=== PATIENT | female | born 1955 | race Caucasian/White ===

== ENCOUNTER → 2016-07-08 | Day surgery (SDC) | payer BC ==
[~2016-07-08] MED LIST: ACETAMINOPHEN 1000 MG/100 ML VIAL IV ONE; ACETAMINOPHEN/HYDROcodone 325 MG/5 MG TAB ONE; BUPIVACAINE/EPINEPHRINE 0.5% 50 ML VIAL ONE; BUPR-197 PO; HYDR-3533 PO; ISOSULFAN BLUE 50 MG/5 ML VIAL SQ ONE; LACTATED RINGER'S 1000 ML INJ 1,000 ML ONE; LIDOCAINE 1%/EPINEPHrine 1:100,000 SOLN 20 ML VIAL ONE; MEPERIDINE HCL 25 MG/ML VIAL ONE; MIDAZOLAM HCL 2 MG/2 ML VIAL ONE; NAPR-576 PO; ONDANSETRON HCL 4 MG/2 ML VIAL IV PUSH ONE; PROPOFOL 200 MG/20 ML AMP IV ONE; SYNT25TA PO; VANCOMYCIN HCL 1000 MG VIAL ONE; ceFAZolin INJ 1,000 MG VIAL ONE
--- NOTE | 2016-07-17 08:08 | MP ---
cc: DON HENAO M.D., RONALD J. M.D. DATE OF SURGERY: 07/08/2016 PROCEDURE 1. Needle-localized wide local excision, right breast and left breast. 2. Excision sentinel lymph nodes, right axilla x2. PREOPERATIVE DIAGNOSIS 1. Invasive ductal carcinoma, right breast. 2. Atypical ductal hyperplasia, left breast. ANESTHESIA LMA. SURGEON Bravo ESTIMATED BLOOD LOSS 50 mL. FLUIDS 1150 mL crystalloid. COMPLICATIONS None. DRAINS None. SPECIMEN Right axillary sentinel nodes x2, right breast needle-localized tissue, and left breast needle-localized tissue to pathology. PROCEDURE IN DETAIL The patient underwent a needle-localized procedure in the Department of Radiology in both breasts. He then underwent injection with technetium-99 sulfur colloid in the right breast. She was then re-imaged and the right axilla marked by the radiologist. She returned to the operating room where she was placed on the operating table in the supine position. After an adequate level of laryngeal mask anesthesia was achieved, the breasts were prepped and draped bilaterally. A timeout was taken confirming the correct patient, site and procedures to be performed. Attention was turned to the left side first and at this point a curvilinear incision was made midway between the needle insertion site and the nipple-areolar complex. Dissection was carried down to the needle which was cut at the skin and brought into the wound. A very generous sphere of tissue was removed around the needle and sent for specimen mammogram. While awaiting radiographic confirmation, the wound was made hemostatic with electrocautery. The wound was then closed with interrupted 3-0 Vicryl suture and 5-0 PDS in a running subcuticular fashion. The breast was dressed with Steri-Strips. Attention was then turned to the right breast and at this point an incision was made in the axilla where the lymph nodes were noted to be by the radiologist. Dissection was carried down into the axilla were two lymph nodes were found to have activity above background. These were excised and passed off the table. With hemostasis assured, the axilla was closed in two layers with interrupted 3-0 Vicryl suture and 5-0 PDS in a running subcuticular fashion. The wound was toweled off and attention turned to the left breast. A curvilinear incision was made in the left breast midway between the needle insertion site and the nipple-areolar complex. Dissection was carried out laterally to the needle which was cut at the skin and brought into the wound. A sphere of tissue was removed including the needle and this was sent for specimen radiograph. This confirmed the micro clip to be present within the specimen. While awaiting radiologic confirmation, the wound was made hemostatic with electrocautery. The wound was closed in two layers with interrupted 3-0 Vicryl suture and 5-0 PDS in a running subcuticular fashion. Both the axillary wound and the breast wounds were dressed with Steri-Strips. The patient was extubated and taken back to the recovery room in stable condition. She tolerated the procedure well. MD REMEDIOS Borges/DANIELA /6:00 PM /7:50 AM RONALD
== END | disposition home or self-care (01) ==
LOC: ESDC 07:04
PROVIDERS: ATTEND Surgery Trauma Surgery
DX: C50.911 Malignant neoplasm of unspecified site of right female breast (principal); N60.92 Unspecified benign mammary dysplasia of left breast
CPT/HCPCS: 00400; 01610; 19125; 38525; 88307; 88313; 88341; 88342; 88361; 88377; J0131; J0690; J2175; J2250; J2405; J3010; J3370; J7120; Q9968

== ENCOUNTER → 2016-07-29 | Day surgery (SDC) | payer BC ==
[~2016-07-29] MED LIST changes: -ACETAMINOPHEN/HYDROcodone 325 MG/5 MG TAB ONE; +BUPIVACAINE/EPINEPHRINE 0.25% PF 10 ML VIAL ONE; -BUPIVACAINE/EPINEPHRINE 0.5% 50 ML VIAL ONE; -ISOSULFAN BLUE 50 MG/5 ML VIAL SQ ONE; +KETOROLAC TROMETHAMINE 30 MG/ML (IVP) VIAL IV PUSH ONE; -MEPERIDINE HCL 25 MG/ML VIAL ONE; +SODIUM CHLOR 0.9% 250 ML BAG IV ONE
--- NOTE | 2016-07-29 13:13 | MP ---
cc: DON HENAO M.D., GEORGE MD KROCHAK, RONALD J. M.D. LATIF, ZAFAR MD DATE OF SURGERY 07/29/2016 PROCEDURE Excision left axillary sentinel lymph node. PREOPERATIVE DIAGNOSIS DCIS left breast with history of invasive carcinoma of the right breast. POSTOPERATIVE DIAGNOSIS DCIS left breast with history of invasive carcinoma of the right breast. ANESTHESIA LMA. ESTIMATED BLOOD LOSS Less than 5 ml. FLUIDS 800 mL crystalloid. COMPLICATIONS None. DRAINS None. SPECIMEN Left axillary sentinel node x 1 to pathology. PROCEDURE IN DETAIL The patient was taken to the Department of Nuclear Medicine where she underwent injection of the left breast with technetium 99 sulfur colloid. She was imaged and found to have a sentinel node in the left axilla. This was marked by the radiologist. The patient was taken to the operating room and placed on the operating table in the supine position. After an adequate level of laryngeal mask anesthesia was instituted, the left axilla was prepped and draped. Time-out was taken confirming the correct patient site and procedure to be performed. The skin and subcutaneous tissue was infiltrated with local anesthetic and an incision made in the skin fold in the axilla. Dissection was carried down to the lymph node which was excised with electrocautery. The axilla was reexamined with the probe which had been used to identify the node and direct dissection. No further activity above background was noted. There were no clinically suspicious nodes by palpation. With the wound hemostatic, the skin was reapproximated with interrupted 3-0 Vicryl suture and 5-0 PDS in a running subcuticular fashion. The wound was dressed with Steri-Strips. The patient was extubated and taken back to the recovery room in stable condition. She tolerated the procedure well. Sponge, needle and instrument counts were reported to be correct. MD REMEDIOS Borges/LUZMA /12:48 PM /1:00 PM RONALD
== END | disposition home or self-care (01) ==
LOC: ESDC 06:53
PROVIDERS: ATTEND Surgery Trauma Surgery
DX: D05.12 Intraductal carcinoma in situ of left breast (principal); Z85.3 Personal history of malignant neoplasm of breast
CPT/HCPCS: 01610; 38525; 88307; J0131; J0690; J1885; J2250; J2405; J3010; J3370; J7050; J7120

== ENCOUNTER 2017-09-12 13:13 | Inpatient (IN) ==
--- NOTE | 2017-09-12 13:56 | XR ---
EXAM DATE: 09/12/2017 1:54 PM EDT AGE/SEX: 62 years / Female INDICATIONS: Chest pain CLINICAL DATA: This is the patient's initial encounter. Patient reports that signs and symptoms have been present for 1 month and indicates a pain score of 0/10. MEDICAL/SURGICAL HISTORY: Carcinoma, breast. . COMPARISON: No prior exams available for comparison. FINDINGS: A single AP view of the chest demonstrates the lungs to be symmetrically aerated without evidence of mass, infiltrate or effusion. The cardiomediastinal contours are unremarkable. Osseous structures a re intact. CONCLUSION: No acute cardiopulmonary disease Electronically signed by: Roldan Jordan MD 09/12/2017 1:55 PM EDT
--- NOTE | 2017-09-12 13:58 | ED ---
HPI General Chief Complaint: Arrhythmia/Palpitations Stated Complaint: Shortness of breath Time Seen by Provider: 09/12/17 13:29 Source: patient Mode of arrival: ambulatory Limitations: no limitations History of Present Illness MD complaint: rapid heart beat and "heart racing" Onset (ago): week(s) (6) Duration: intermittent Severity: moderate Context: occurred during rest and occurred during exertion Related Data Home Medications Medication Instructions Recorded Confirmed anastrozole 1 mg PO DAILY 09/12/17 09/12/17 calcium carbonate-vitamin D3 09/12/17 [Caltrate 600 + D] levothyroxine 125 mcg PO DAILY 09/12/17 09/12/17 Allergies Allergy/AdvReac Type Severity Reaction Status Date / Time No Known Allergies Allergy Uncoded 03/23/15 10:37 [facility] Medical History Medical History Breast cancer (Acute) High cholesterol (Acute) Hyperthyroidism (Acute) Surgical History Surgical History Status post radiation therapy (Acute) Social History Social History Substance History: No History of Abuse Second Hand Smoke Exposure: Yes Smoking Status: Heavy tobacco smoker Tobacco Type: Cigarettes How Often Do You Have a Drink Containing Alcohol: 2 to 4 times a month Course Initial Documented Vital Signs Temperature 97.9 F 09/12/17 13:22 Pulse Rate 110 H 09/12/17 13:22 Respiratory Rate 20 09/12/17 13:22 Blood Pressure 133/89 09/12/17 13:22 Pulse Oximetry 95 09/12/17 13:22 Last Documented Vital Signs Temperature 95 F L 09/12/17 13:58 Pulse Rate 92 H 09/12/17 17:10 Respiratory Rate 18 09/12/17 17:10 Blood Pressure 132/86 09/12/17 17:10 Pulse Oximetry 96 09/12/17 17:10 Medical Decision Making [facility] Narrative Medical decision making narrative: Patient is a 62-year-old female that presented to the emergency department for evaluation of shortness of breath and palpitations. Labs and imaging ordered and pending. IV access established patient was placed on hall monitor. Labs reviewed, BNP is elevated to 69. TSH and free T4 are consistent with hyperthyroidism. Patient is on levothyroxine. Dose likely needs to be adjusted down. Initial chest x-ray showed no acute disease. Patient had a CT pulmonary angiogram performed to rule out pulmonary embolism but showed moderate emphysema. Patient was given DuoNeb as well as budesonide inhaler. Walking O2 sat was obtained and patient O2 saturation dropped to 88-89 percent and she became symptomatic. Discussed findings with Dr. Tai who accepted admission. Patient will be admitted for COPD exacerbation. Differential Diagnosis Differential Diagnosis: Pulmonary embolism versus cardiac arrhythmia versus metabolic abnormality versus pneumonia versus COPD exacerbation versus other Lab Data Lab results reviewed: Yes I reviewed the patient's lab results. Result diagrams: 09/12/17 13:50 09/12/17 13:50 Lab Results 09/12/17 09/12/17 09/12/17 Range/Units 13:50 13:50 13:50 WBC 8.3 (4.0-11.0) th/mm3 RBC 5.71 H (4.00-5.30) mil/mm3 Hgb 16.7 H (11.6-15.3) gm/dL Hct 49.9 H (35.0-46.0) % MCV 87.3 (80.0-100.0) fL MCH 29.3 (27.0-34.0) pg MCHC 33.5 (32.0-36.0) % RDW 14.6 (11.6-17.2) % Plt Count 295 (150-450) th/mm3 MPV 9.0 (7.0-11.0) fL Neut % (Auto) 68.6 (16.0-70.0) % Lymph % (Auto) 22.2 (9.0-44.0) % Kidder % (Auto) 7.6 (0.0-8.0) % Eos % (Auto) 1.0 (0.0-4.0) % Baso % (Auto) 0.6 (0.0-2.0) % Neut # (Auto) 5.7 (1.8-7.7) th/mm3 Lymph # (Auto) 1.8 (1.0-4.8) th/mm3 Kidder # (Auto) 0.6 (0.0-0.9) th/mm3 Eos # (Auto) 0.1 (0.0-0.4) th/mm3 Baso # (Auto) 0.0 (0.0-0.2) th/mm3 WBC Differential . Differential Comment Auto diff final PT 10.2 (9.8-11.6) sec INR 1.0 Ratio APTT 24.0 L (24.3-30.1) sec Sodium 143 (136-145) meq/L Potassium 3.9 (3.5-5.1) meq/L Chloride 109 H (98-107) meq/L Carbon Dioxide 25.3 (21.0-32.0) meq/L Anion Gap 9 (5-15) meq/L BUN 23 H (7-18) mg/dL Creatinine 1.13 H (0.50-1.00) mg/dL Estimated GFR 49 L (>89) mL/min Random Glucose 97 (74-106) mg/dL Calcium 10.1 (8.5-10.1) mg/dL Magnesium 1.9 (1.5-2.5) mg/dL Total Bilirubin 0.3 (0.2-1.0) mg/dL AST 25 (15-37) U/L ALT 41 (10-53) U/L Alkaline Phosphatase 83 (45-117) U/L Total Creatine Kinase 258 H (26-192) U/L CK-MB (CK-2) 7.6 H (0.5-3.6) ng/mL CK-MB (CK-2) % 2.9 (0.0-4.0) % Troponin I 0.05 (0.02-0.05) ng/mL B-Natriuretic Peptide (0-100) pg/mL Total Protein 7.7 (6.4-8.2) g/dL Albumin 4.3 (3.4-5.0) g/dL TSH 0.048 L (0.358-3.740) uIU/mL Free T4 1.60 H (0.76-1.46) ng/dL 09/12/17 Range/Units 13:50 WBC (4.0-11.0) th/mm3 RBC (4.00-5.30) mil/mm3 Hgb (11.6-15.3) gm/dL Hct (35.0-46.0) % MCV (80.0-100.0) fL MCH (27.0-34.0) pg MCHC (32.0-36.0) % RDW (11.6-17.2) % Plt Count (150-450) th/mm3 MPV (7.0-11.0) fL Neut % (Auto) (16.0-70.0) % Lymph % (Auto) (9.0-44.0) % Kidder % (Auto) (0.0-8.0) % Eos % (Auto) (0.0-4.0) % Baso % (Auto) (0.0-2.0) % Neut # (Auto) (1.8-7.7) th/mm3 Lymph # (Auto) (1.0-4.8) th/mm3 Kidder # (Auto) (0.0-0.9) th/mm3 Eos # (Auto) (0.0-0.4) th/mm3 Baso # (Auto) (0.0-0.2) th/mm3 WBC Differential Differential Comment PT (9.8-11.6) sec INR Ratio APTT (24.3-30.1) sec Sodium (136-145) meq/L Potassium (3.5-5.1) meq/L Chloride (98-107) meq/L Carbon Dioxide (21.0-32.0) meq/L Anion Gap (5-15) meq/L BUN (7-18) mg/dL Creatinine (0.50-1.00) mg/dL Estimated GFR (>89) mL/min Random Glucose (74-106) mg/dL Calcium (8.5-10.1) mg/dL Magnesium (1.5-2.5) mg/dL Total Bilirubin (0.2-1.0) mg/dL AST (15-37) U/L ALT (10-53) U/L Alkaline Phosphatase (45-117) U/L Total Creatine Kinase (26-192) U/L CK-MB (CK-2) (0.5-3.6) ng/mL CK-MB (CK-2) % (0.0-4.0) % Troponin I (0.02-0.05) ng/mL B-Natriuretic Peptide 269 H (0-100) pg/mL Total Protein (6.4-8.2) g/dL Albumin (3.4-5.0) g/dL TSH (0.358-3.740) uIU/mL Free T4 (0.76-1.46) ng/dL Imaging Data Radiologist's impression: ITS Impressions Chest CTA 09/12/17 13:40 CONCLUSION: 1. Negative for pulmonary embolus. Moderate emphysema. Chest X-Ray 09/12/17 13:40 CONCLUSION: No acute cardiopulmonary disease Radiology reviewed. Discharge Plan Physicians Team ED Provider: Jacob Vazquez ED Midlevel Provider: Kylie Isaacs Primary Care Provider: Jet Orlando Rxs /Orders / Referrals /Forms Prescriptions: No Action anastrozole 1 mg Tablet 1 mg PO DAILY RF: 0 levothyroxine 125 mcg Capsule 125 mcg PO DAILY RF: 0 calcium carbonate-vitamin D3 [Caltrate 600 + D] 600 mg (1,500 mg)-800 unit Tablet,Chewable RF: 0 Discharge Interventions Interventions: Vital Signs Last Done: 09/12/17 13:24 Status ED Status: Admitted Patient
[2017-09-12 14:16] LABS: Baso % (Auto) 0.6 % (0.0-2.0); Eos # (Auto) 0.1 th/mm3 (0.0-0.4); Hematocrit 49.9 % (35.0-46.0); Hemoglobin 16.7 gm/dL (11.6-15.3); Lymph # (Auto) 1.8 th/mm3 (1.0-4.8); Lymph % (Auto) 22.2 % (9.0-44.0); Mean Corpuscular HGB Conc 33.5 % (32.0-36.0); Mean Corpuscular Hemoglobin 29.3 pg (27.0-34.0); Mean Corpuscular Volume 87.3 fL (80.0-100.0); Mono # (Auto) 0.6 th/mm3 (0.0-0.9); Mono % (Auto) 7.6 % (0.0-8.0); Neut # (Auto) 5.7 th/mm3 (1.8-7.7); Neut % (Auto) 68.6 % (16.0-70.0); Platelet Count 295 th/mm3 (150-450); Red Blood Count 5.71 mil/mm3 (4.00-5.30); Red Cell Distribution Width 14.6 % (11.6-17.2); White Blood Count 8.3 th/mm3 (4.0-11.0)
[2017-09-12 14:27] LABS: Prothrombin Time 10.2 sec (9.8-11.6)
[2017-09-12 14:49] LABS: Alkaline Phosphatase 83 U/L (45-117); Creatine Kinase 258 U/L (26-192); Thyroid Stimulating Hormone 0.048 uIU/mL (0.358-3.740); Total Protein 7.7 g/dL (6.4-8.2); Troponin I 0.05 ng/mL (0.02-0.05)
[2017-09-12 15:02] LABS: Alanine Aminotransferase 41 U/L (10-53); Albumin 4.3 g/dL (3.4-5.0); Anion Gap 9 meq/L (5-15); Aspartate Aminotransferase 25 U/L (15-37); Blood Urea Nitrogen 23 mg/dL (7-18); CKMB Percent 2.9 % (0.0-4.0); Calcium 10.1 mg/dL (8.5-10.1); Carbon Dioxide 25.3 meq/L (21.0-32.0); Chloride 109 meq/L (98-107); Creatine Kinase MB 7.6 ng/mL (0.5-3.6); Glomerular Filtration Rate 49 mL/min (>89); Glucose,Random 97 mg/dL (74-106); Magnesium 1.9 mg/dL (1.5-2.5); Potassium 3.9 meq/L (3.5-5.1); Sodium 143 meq/L (136-145)
--- NOTE | 2017-09-12 16:31 | CT ---
EXAM DATE: 09/12/2017 4:16 PM EDT AGE/SEX: 62 years / Female INDICATIONS: Heart palpitations and increased shortness of breath daily after increased physical act ivity 6 weeks ago CLINICAL DATA: This is the patient's initial encounter. Patient reports that signs and symptoms have been present for 1 month and indicates a pain score of 0/10. MEDICAL/SURGICAL HISTORY: Carcinoma, breast. . Bilateral breast lumpectomies and lumpectomies per p atient RADIATION DOSE: 9.37 CTDI (mGy) COMPARISON: No prior exams available for comparison. TECHNIQUE: Volumetric scanning was performed using a multi-row detector CT scanner during bolus infu tristian of 74ML ml Omnipaque 350 (iohexol) nonionic water-soluble contrast as a single exam dose. The d manuel was post processed with a variety of visualization algorithms including full volume maximum inten sity projection and sliding thin slab reformation. Using automated exposure control and adjustment o f the mA and/or kV according to patient size, radiation dose was kept as low as reasonably achievable to obtain optimal diagnostic quality images. DICOM format image data is available electronically fo r review and comparison. FINDINGS: No filling defects to suggest pulmonary embolic disease. Moderate emphysema. No pleural or pericardia l effusion. No lung consolidation. No hilar, mediastinal or axillary adenopathy. Moderate coronary ca lcifications. No acute findings in the upper abdomen. CONCLUSION: 1. Negative for pulmonary embolus. Moderate emphysema. Electronically signed by: Lenny Sr MD 09/12/2017 4:29 PM EDT
[2017-09-12] MEDS ORDERED: MethylPREDNISolone Sod Succinate Inj 40 MG/ML Vial IV.PUSH ONE (17:33)
[2017-09-12] MEDS: Enoxaparin Inj 40 MG/0.4 ML Syringe SQ SCH (17:42)
[2017-09-12] MEDS: Azithromycin Inj 500 MG in Sodium Chlor 0.9% Inj 250 ML IV.SIG SCH (17:51)
--- NOTE | 2017-09-12 19:32 | P.HPIM ---
History of Present Illness Primary Care Physician: Jet Orlando MD History of Present Illness: Mrs. Mancini is a 62-year-old female. She has a past medical history of breast cancer with radiation therapy. She also has a long history of smoking. No previous diagnosis of COPD but she comes into the emergency department with shortness of breath and hypoxia. Etiology is likely a COPD exacerbation. No overt evidence of bronchitis. The symptoms have been a gradual worsening over about 1 week. Her only other medical condition at baseline is hypothyroidism. Today TSH is suppressed and T4 is elevated. The patient has tachycardia and some of this may be contributory by the iatrogenic type per thyroidism. Most of it is likely related to her hypoxia as when she has oxygen on her heart rate slows when she is taking oxygen off she has a increase in her heart rate. No other complaints at this time. She is more comfortable with oxygen. No cough, no fever, no chest pain. Inpatient Certification: I certify that the inpatient services were ordered in accordance with Medicare regulations governing the order. This includes certification that hospital inpatient services are reasonable and necessary and in the case of services not specified as inpatient-only under 42 CFR 419.22(n), that they are appropriately provided as inpatient services in accordance to with the 2-midnight benchmark under 43 CFR 412.3(e) Estimated Total Length of Stay (Days): 3 Plans for Post Hospital Care: Home Review of Systems Constitutional: Reports fatigue, Reports weakness, Denies anorexia, Denies chills, Denies night sweats Eyes: Denies blind spots, Denies blurry vision, Denies bulging eyes Ears, Nose, Mouth, and Throat: Denies abnormal hearing, Denies ear pain, Denies nasal discharge Cardiovascular: Denies chest pain, Denies chest pain at rest, Denies chest pain with activity Respiratory: Reports shortness of breath, Reports shortness of breath with activity, Denies cough, Denies wheezing Gastrointestinal: Denies abdominal pain, Denies bright, red blood in stools, Denies change in stools Musculoskeletal: Denies abnormal walking, Denies back pain, Denies body aches Skin/Breast: Denies dry skin, Denies hair loss, Denies itching, Denies lesions Neurologic: Denies abnormal hearing, Denies abnormal movements, Denies abnormal speech PMFSH - History History Provided By: Patient - Medical History Medical History: Medical History (Last Updated 09/12/17 @ 19:25 by Lai Tai MD) Breast cancer High cholesterol Hyperthyroidism Hypothyroidism - Surgical History Surgical History: Surgical History (Last Updated 09/12/17 @ 19:26 by Lai Tai MD) History of knee replacement Hx of plastic surgery S/P surgical manipulation of ankle joint Status post radiation therapy - Family History Family History: Family History (Last Updated 09/12/17 @ 19:27 by Lai Tai MD) Mother COPD (chronic obstructive pulmonary disease) Breast cancer Mother No problems noted. Other Diabetes - Tobacco History Second Hand Smoke Exposure: Yes Tobacco Use In Past 30 Days: Yes Smoking Status: Heavy tobacco smoker Tobacco Type: Cigarettes - Alcohol History How Often Do You Have a Drink Containing Alcohol: 2 to 4 times a month - Substance Use History Substance History: No History of Abuse - Immunization History Tetanus Immunization: <5 Years Hx Influenza Vaccine This Season: Yes Medications and Allergies Active Medications: Active Medications Al Hydroxide/Mg Hydroxide (Milk Of Magnlola Liq) 30 ml PO Q12H PRN PRN Reason: Mild Constipation Albuterol (Albuterol Neb (Prn)) 2.5 mg NEB Q2HR NEB PRN PRN Reason: SHORTNESS OF BREATH Albuterol (Duoneb Neb (Shant)) 1 ampul NEB Q6HR NEB SHANT Anastrozole (Arimidex) 1 mg PO DAILY [facility] Enoxaparin Sodium (Lovenox Inj) 40 mg SQ Q24H [facility] Last Admin: 09/12/17 17:42 Dose: Not Given Azithromycin 500 mg/ Sodium (Chloride) 250 mls @ 250 mls/hr IV.SIG Q24H [facility] [place] Last Admin: 09/12/17 17:51 Dose: 250 mls/hr Levothyroxine Sodium (Synthroid) 100 mcg PO DAILY@0600 [facility] Prednisone (Deltasone) 40 mg PO DAILY SHANT Sodium Chloride (Ns Flush) 2 ml IV.FLUSH UNSCH PRN PRN Reason: FLUSH AFTER USING IV ACCESS Sodium Chloride (Ns Flush) 2 ml IV.FLUSH BID SHANT Sodium Chloride (Ns Flush) 2 ml IV.FLUSH PRN PRN PRN Reason: FLUSH AFTER USING IV ACCESS Allergies Allergy/AdvReac Type Severity Reaction Status Date / Time No Known Allergies Allergy Uncoded 03/23/15 10:37 Home Medications Medication Instructions Recorded Confirmed Type anastrozole 1 mg PO DAILY 09/12/17 09/12/17 History calcium carbonate-vitamin D3 600 mg PO DAILY 09/12/17 09/12/17 History [Caltrate 600 + D] levothyroxine 125 mcg PO DAILY 09/12/17 09/12/17 History Exam Vital signs: Vital Signs 09/12/17 13:22 09/12/17 13:24 09/12/17 13:58 Temperature 97.9 F 95 F L Pulse Rate 110 H 95 H 96 H Respiratory Rate 20 18 18 Blood Pressure 133/89 150/87 H 150/87 H Pulse Oximetry 95 95 95 09/12/17 16:53 09/12/17 17:10 09/12/17 17:39 Temperature Pulse Rate 102 H 92 H 97 H Respiratory Rate 18 18 Blood Pressure 132/86 151/94 H Pulse Oximetry 89 L 96 95 09/12/17 17:51 Temperature Pulse Rate 95 H Respiratory Rate 16 Blood Pressure Pulse Oximetry 96 Intake & Output 09/12/17 09/12/17 09/13/17 06:59 18:59 06:59 Weight 72.121 kg Narrative: GENERAL: NAD, A&Ox3 HEAD: Normocephalic. NECK: Supple, trachea midline. No lymphadenopathy. EYES: No scleral icterus. No injection or drainage. CARDIOVASCULAR: Regular rate and rhythm without murmurs, gallops, or rubs. RESPIRATORY: Breath sounds equal bilaterally. No accessory muscle use. Bilateral wheezing GASTROINTESTINAL: Abdomen soft, non-tender, nondistended. MUSCULOSKELETAL: No cyanosis, or edema. SKIN: Warm and dry. NEURO: No focal neurological deficits. Results - Labs CBC & Chem 7: 09/12/17 13:50 09/12/17 13:50 Labs: Short CBC 09/12/17 Range/Units 13:50 WBC 8.3 (4.0-11.0) th/mm3 Hgb 16.7 H (11.6-15.3) gm/dL Hct 49.9 H (35.0-46.0) % Plt Count 295 (150-450) th/mm3 [facility] 09/12/17 13:50 Sodium 143 Potassium 3.9 Chloride 109 H Carbon Dioxide 25.3 BUN 23 H Creatinine 1.13 H Calcium 10.1 Cardiac Enzymes 09/12/17 Range/Units 13:50 Total Creatine Kinase 258 H (26-192) U/L CK-MB (CK-2) 7.6 H (0.5-3.6) ng/mL Troponin I 0.05 (0.02-0.05) ng/mL Liver Function 09/12/17 Range/Units 13:50 Total Bilirubin 0.3 (0.2-1.0) mg/dL AST 25 (15-37) U/L ALT 41 (10-53) U/L Alkaline Phosphatase 83 (45-117) U/L Albumin 4.3 (3.4-5.0) g/dL - Imaging Impressions Chest CTA 09/12/17 13:40 CONCLUSION: 1. Negative for pulmonary embolus. Moderate emphysema. Chest X-Ray 09/12/17 13:40 CONCLUSION: No acute cardiopulmonary disease Caprini VTE Risk Assessment Caprini VTE Risk Assessment: No/Low Risk (score <= 1) Caprini Risk Assessment Model: Point Value = 1 Point Value = 2 Point Value = 3 Point Value = 5 Age 41-60 Minor surgery BMI > 25 kg/m2 Swollen legs Varicose veins or History of unexplained or recurrent spontaneous Oral contraceptives or hormone replacement Sepsis (< 1 month) Serious lung disease, including pneumonia (< 1 month) Abnormal pulmonary function Acute myocardial infarction Congestive heart failure (< 1 month) History of inflammatory bowel disease Medical patient at bed rest Age 61-74 Arthroscopic surgery Major open surgery (> 45 min) Laparoscopic surgery (> 45 min) Malignancy Confined to bed (> 72 hours) Immobilizing plaster cast Central venous access Age >= 75 History of VTE Family history of VTE Factor V Leiden Prothrombin [id number] Lupus anticoagulant Anticardiolipin antibodies Elevated serum homocysteine Heparin-induced thrombocytopenia Other congenital or acquired thrombophilia Stroke (< 1 month) Elective arthroplasty Hip, pelvis, or leg fracture Acute spinal cord injury (< 1 month) Prophylaxis Regimen: Total Risk Factor Score Risk Level Prophylaxis Regimen 0-1 Low Early ambulation 2 Moderate Order ONE of the following: *Sequential Compression Device (SCD) *Heparin 5000 units SQ BID 3-4 Higher Order ONE of the following medications: *Heparin 5000 units SQ TID *Enoxaparin/Lovenox 40 mg SQ daily (WT < 150 kg, CrCl > 30 mL/min) *Enoxaparin/Lovenox 30 mg SQ daily (WT < 150 kg, CrCl > 10-29 mL/min) *Enoxaparin/Lovenox 30 mg SQ BID (WT < 150 kg, CrCl > 30 mL/min) AND/OR *Sequential Compression Device (SCD) 5 or more Highest Order ONE of the following medications: *Heparin 5000 units SQ TID (Preferred with Epidurals) *Enoxaparin/Lovenox 40 mg SQ daily (WT < 150 kg, CrCl > 30 mL/min) *Enoxaparin/Lovenox 30 mg SQ daily (WT < 150 kg, CrCl > 10-29 mL/min) *Enoxaparin/Lovenox 30 mg SQ BID (WT < 150 kg, CrCl > 30 mL/min) AND *Sequential Compression Device (SCD) Assessment and Plan - Plan 62-year-old female admitted secondary to hypoxia with respiratory failure Hypoxia Respiratory failure Suspected COPD exacerbation Continue oxygen supplements as needed Schedule duo nebs When necessary albuterol Azithromycin Systemic steroids Follow for improvement in respiratory status Follow for improvement in exertional tolerance next Hypothyroidism Iatrogenic hyperthyroidism Hold Synthroid Resume Synthroid in 2 days at lower dose History of breast cancer Likely contributory to lung disease Continue follow as an outpatient Nicotine dependence Patient recommended to quit smoking NicoDerm DVT prophylaxis Lovenox
[2017-09-13 09:07] LABS: Baso % (Auto) 0.1 % (0.0-2.0); Hematocrit 48.1 % (35.0-46.0); Hemoglobin 15.9 gm/dL (11.6-15.3); Lymph # (Auto) 1.1 th/mm3 (1.0-4.8); Lymph % (Auto) 12.4 % (9.0-44.0); Mean Corpuscular Hemoglobin 28.9 pg (27.0-34.0); Mean Corpuscular Volume 87.8 fL (80.0-100.0); Mean Platelet Volume 8.8 fL (7.0-11.0); Mono # (Auto) 0.3 th/mm3 (0.0-0.9); Mono % (Auto) 3.5 % (0.0-8.0); Neut # (Auto) 7.3 th/mm3 (1.8-7.7); Platelet Count 299 th/mm3 (150-450); Red Blood Count 5.48 mil/mm3 (4.00-5.30); Red Cell Distribution Width 14.4 % (11.6-17.2); White Blood Count 8.7 th/mm3 (4.0-11.0)
[2017-09-13 09:12] LABS: Albumin 3.9 g/dL (3.4-5.0); Anion Gap 13 meq/L (5-15); Aspartate Aminotransferase 21 U/L (15-37); Blood Urea Nitrogen 24 mg/dL (7-18); Calcium 9.5 mg/dL (8.5-10.1); Carbon Dioxide 21.6 meq/L (21.0-32.0); Chloride 106 meq/L (98-107); Glomerular Filtration Rate 49 mL/min (>89); Glucose,Random 118 mg/dL (74-106); Potassium 4.2 meq/L (3.5-5.1); Sodium 141 meq/L (136-145)
[2017-09-13 09:13] LABS: Alanine Aminotransferase 39 U/L (10-53)
[2017-09-13 09:15] LABS: Alkaline Phosphatase 74 U/L (45-117); Total Protein 7.8 g/dL (6.4-8.2)
--- NOTE | 2017-09-13 09:51 | ECG ---
Date Performed: 09/12/2017 Time Performed: 13:42:36 PTAGE: 62 years EKG: Sinus rhythm MODERATE T-WAVE ABNORMALITY, CONSIDER ANTERIOR ISCHEMIA ABNORMAL ECG Since the PREVIOUS TRACING , no significant change noted PREVIOUS TRACIN12/24/1998 12.28 DOCTOR: Miguel A Blackmon Interpretating Date/Time 09/13/2017 09:48:45
[2017-09-13] MEDS: Anastrozole 1 MG Tablet PO SCH (10:30)
[2017-09-13] MEDS: predniSONE 20 MG Tablet PO SCH (10:30)
--- NOTE | 2017-09-13 14:53 | P.PNIM ---
Subjective Interval history: Significant improvement. Patient still gets hypoxic with attempts at exertion. She should continue to improve on current treatments and is a potential discharge for tomorrow. Physical Exam Vital signs: Vital Signs 09/12/17 16:53 09/12/17 17:10 09/12/17 17:39 Temperature Pulse Rate 102 H 92 H 97 H Respiratory Rate 18 18 Blood Pressure 132/86 151/94 H Pulse Oximetry 89 L 96 95 Pulse Oximetry [Exertion on Room Air] Pulse Oximetry [Resting on Room Air] Pulse Oximetry [Resting with Oxygen] 09/12/17 17:51 09/12/17 19:56 09/12/17 20:00 Temperature 98.1 F Pulse Rate 95 H 97 H Respiratory Rate 16 18 Blood Pressure 131/88 Pulse Oximetry 96 94 L 94 L Pulse Oximetry [Exertion on Room Air] Pulse Oximetry [Resting on Room Air] Pulse Oximetry [Resting with Oxygen] 09/13/17 00:00 09/13/17 03:14 09/13/17 04:00 Temperature 98.2 F 98.1 F Pulse Rate 94 H 94 H 96 H Respiratory Rate 18 18 18 Blood Pressure 126/62 115/71 Pulse Oximetry 95 97 94 L Pulse Oximetry [Exertion on Room Air] Pulse Oximetry [Resting on Room Air] Pulse Oximetry [Resting with Oxygen] 09/13/17 09:36 09/13/17 11:37 Temperature Pulse Rate 100 H Respiratory Rate 14 Blood Pressure Pulse Oximetry 94 L Pulse Oximetry [Exertion on Room Air] 88 L Pulse Oximetry [Resting on Room Air] 90 L Pulse Oximetry [Resting with Oxygen] 94 L Intake & Output 09/12/17 09/13/17 09/13/17 18:59 06:59 18:59 Weight 72.121 kg Other: # Voids 1 Narrative: GENERAL: NAD, A&Ox3 HEAD: Normocephalic. NECK: Supple, trachea midline. No lymphadenopathy. EYES: No scleral icterus. No injection or drainage. CARDIOVASCULAR: Regular rate and rhythm without murmurs, gallops, or rubs. RESPIRATORY: Breath sounds equal bilaterally. No accessory muscle use. GASTROINTESTINAL: Abdomen soft, non-tender, nondistended. MUSCULOSKELETAL: No cyanosis, or edema. SKIN: Warm and dry. NEURO: No focal neurological deficits. Results - Labs CBC & Chem 7: 09/13/17 08:00 09/13/17 08:00 Laboratory Results - last 24 hr 09/12/17 09/12/17 09/13/17 13:50 13:50 08:00 WBC 8.7 RBC 5.48 H Hgb 15.9 H Hct 48.1 H MCV 87.8 MCH 28.9 MCHC 33.0 RDW 14.4 Plt Count 299 MPV 8.8 Neut % (Auto) 84.0 H Lymph % (Auto) 12.4 Garza % (Auto) 3.5 Eos % (Auto) 0.0 Baso % (Auto) 0.1 Neut # (Auto) 7.3 Lymph # (Auto) 1.1 Garza # (Auto) 0.3 Eos # (Auto) 0.0 Baso # (Auto) 0.0 WBC Differential . Differential Comment Auto diff final Sodium 143 Potassium 3.9 Chloride 109 H Carbon Dioxide 25.3 Anion Gap 9 BUN 23 H Creatinine 1.13 H Estimated GFR 49 L Random Glucose 97 Calcium 10.1 Magnesium 1.9 Total Bilirubin AST 25 ALT 41 Alkaline Phosphatase CK-MB (CK-2) 7.6 H CK-MB (CK-2) % 2.9 B-Natriuretic Peptide 269 H Total Protein Albumin 4.3 09/13/17 08:00 WBC RBC Hgb Hct MCV MCH MCHC RDW Plt Count MPV Neut % (Auto) Lymph % (Auto) Garza % (Auto) Eos % (Auto) Baso % (Auto) Neut # (Auto) Lymph # (Auto) Garza # (Auto) Eos # (Auto) Baso # (Auto) WBC Differential Differential Comment Sodium 141 Potassium 4.2 Chloride 106 Carbon Dioxide 21.6 Anion Gap 13 BUN 24 H Creatinine 1.13 H Estimated GFR 49 L Random Glucose 118 H Calcium 9.5 Magnesium Total Bilirubin 0.3 AST 21 ALT 39 Alkaline Phosphatase 74 CK-MB (CK-2) CK-MB (CK-2) % B-Natriuretic Peptide Total Protein 7.8 Albumin 3.9 - Imaging Impressions Chest CTA 09/12/17 13:40 CONCLUSION: 1. Negative for pulmonary embolus. Moderate emphysema. Assessment and Plan - Plan 62-year-old female admitted secondary to hypoxia with respiratory failure Hypoxia Respiratory failure Suspected COPD exacerbation Some improvement today but still oxygen dependent continue oxygen supplements as needed Schedule duo nebs When necessary albuterol Azithromycin Systemic steroids Follow for improvement in respiratory status Follow for improvement in exertional tolerance next Hypothyroidism Iatrogenic hyperthyroidism Hold Synthroid Resume Synthroid in tomorrow at lower dose History of breast cancer History of radiation therapy likely contributory to lung disease Continue follow as an outpatient Nicotine dependence Patient recommended to quit smoking NicoDerm DVT prophylaxis Lovenox
[2017-09-13] MEDS ORDERED: Zolpidem Tartrate 5 MG Tablet PO PRN (18:01)
[2017-09-13] MEDS: Azithromycin Inj 500 MG in Sodium Chlor 0.9% Inj 250 ML IV.SIG SCH (18:49)
[2017-09-13] MEDS: Enoxaparin Inj 40 MG/0.4 ML Syringe SQ SCH (18:52)
[2017-09-14] MEDS ORDERED: Levothyroxine 88 MCG Tablet PO SCH (06:00)
[2017-09-14] MEDS ORDERED: Levothyroxine 100 MCG Tablet PO SCH (06:00)
[2017-09-14] MEDS: Anastrozole 1 MG Tablet PO SCH (11:31)
[2017-09-14] MEDS: predniSONE 20 MG Tablet PO SCH (11:32)
--- NOTE | 2017-09-14 14:53 | P.DS ---
Date of admission: 09/12/17 17:29 Primary care physician: Jet Orlando MD Brief History from admission: Mrs. Mancini is a 62-year-old female. She has a past medical history of breast cancer with radiation therapy. She also has a long history of smoking. No previous diagnosis of COPD but she comes into the emergency department with shortness of breath and hypoxia. Etiology is likely a COPD exacerbation. No overt evidence of bronchitis. The symptoms have been a gradual worsening over about 1 week. Her only other medical condition at baseline is hypothyroidism. Today TSH is suppressed and T4 is elevated. The patient has tachycardia and some of this may be contributory by the iatrogenic type per thyroidism. Most of it is likely related to her hypoxia as when she has oxygen on her heart rate slows when she is taking oxygen off she has a increase in her heart rate. No other complaints at this time. She is more comfortable with oxygen. No cough, no fever, no chest pain. DS: Medications - Discharge Medications Prescriptions: albuterol sulfate [Ventolin HFA] 2 puff INHALATION Q4H PRN #1 unit PRN Reason: Shortness Of Breath levothyroxine [Synthroid] 100 mcg PO DAILY@0600 #30 tab prednisone 10 mg PO DAILY #3 tab DS: Summary Hospital Course: Mrs. Mancini is a 62-year-old female. She was admitted secondary to exacerbation of COPD. She has no formal diagnosis of COPD but has a long past history of smoking combined with a past history of radiation therapy to the breasts. With steroids and oxygen she has had improvement through time. At this point she is able be weaned off oxygen and on room air. She is medically stable for discharge home today continue steroids and a breathing treatment as needed. No further need for oxygen at this point. - Time Spent with Patient Total time spent providing and/or coordinating discharge services: Exam Vital signs: Vital Signs 09/13/17 15:59 09/13/17 16:26 09/13/17 20:00 Temperature 98 F 98.7 F Pulse Rate 107 H 67 95 H Respiratory Rate 14 16 26 H Blood Pressure 124/68 130/90 Pulse Oximetry 96 98 09/13/17 21:24 09/14/17 00:00 09/14/17 04:00 Temperature 98.0 F 97.4 F L Pulse Rate 112 H 111 H 108 H Respiratory Rate 16 18 20 Blood Pressure 95/64 L 118/76 Pulse Oximetry 98 93 L 95 09/14/17 08:00 09/14/17 08:55 09/14/17 11:55 Temperature 97.7 F Pulse Rate 101 H 93 H 88 Respiratory Rate 18 16 Blood Pressure 138/91 H Pulse Oximetry 96 96 09/14/17 12:00 Temperature 97.5 F L Pulse Rate 95 H Respiratory Rate 18 Blood Pressure 121/75 Pulse Oximetry 94 L Intake & Output 09/13/17 09/14/17 09/14/17 18:59 06:59 18:59 Intake Total 600 / 600 Balance 600 / 600 Weight 72.2 kg Intake: Oral 600 / 600 Other: # Voids 2 Results Procedures completed during hospitalization: None - Impressions ITS Impressions Chest CTA 09/12/17 13:40 CONCLUSION: 1. Negative for pulmonary embolus. Moderate emphysema. Chest X-Ray 09/12/17 13:40 CONCLUSION: No acute cardiopulmonary disease Discharge Plan - Discharge Disposition Patient Disposition: 01 Discharge Home - Discharge Condition Condition: Stable - Discharge Order Discharge Orders: Discharge Order (Routine); Ordered 09/14/17 Ordered By: Lai Tai - Discharge Details Anticipated Discharge Date: 09/14/17 - Physicians Team Primary Care Provider: Jet Orlando Attending Provider: Lai Tai
== END 2017-09-14 17:15 | disposition home or self-care (01) ==
LOC: NEPE 13:13 → NEDA 17:29 → N05 19:29
PROVIDERS: ADMIT Hospitalist; ATTEND Hospitalist